=== PATIENT | female | born 1970 | race African-American/Black ===

== ENCOUNTER 2016-10-16 14:21 | Inpatient (IN) | payer OTHER ==
[2016-10-16 14:57] VITALS: BMI 36.7
--- NOTE | 2016-10-16 15:45 | HP ---
CIWA Score - CIWA Score Nausea/Vomitin-No Nausea/No Vomiting Muscle Tremors: 4-Moderate,w/Arms Extend Anxiety: 4-Mod. Anxious/Guarded Agitation: 4-Moderately Restless Paroxysmal Sweats: 3 Orientation: 0-Oriented Tacttile Disturbances: 0-None Auditory Disturbances: 0-None Visual Disturbances: 0-None Headache: 0-None Present CIWA-Ar Total Score: 15 Admission ROS BHS - HPI Chief Complaint: I need detox and get my life back. Allergies/Adverse Reactions: Allergies Allergy/AdvReac Type Severity Reaction Status Date / Time No Known Allergies Allergy Verified 10/16/16 15:31 History of Present Illness: pt is a 46yr old female with a history of alcohol and crack/cocaine dependence seeking detox for treatment. Exam Limitations: No Limitations - Ebola screening Have you traveled outside of the country in the last 21 days: No Have you had contact with anyone from an Ebola affected area: No Have you been sick,other than usual withdrawal symptoms: No Do you have a fever: No - Review of Systems Constitutional: Diaphoresis, Night Sweats EENT: reports: Nose Congestion Respiratory: reports: Cough Cardiac: reports: No Symptoms Reported GI: reports: Poor Fluid Intake : reports: No Symptoms Reported Musculoskeletal: reports: Back Pain (scoliosis and siatica) Integumentary: reports: Flushing, Sweating Neuro: reports: Tremors Endocrine: reports: Excessive Sweating, Flushing, Intolerance to Cold, Intolerance to Heat Hematology: reports: No Symptoms Reported Psychiatric: reports: Judgement Intact, Mood/Affect Appropiate, Orientated x3, Agitated, Anxious Other Systems: Reviewed and Negative Patient History - Patient Medical History Hx Anemia: No Hx Asthma: Yes Hx Chronic Obstructive Pulmonary Disease (COPD): No Hx Cancer: No Hx Cardiac Disorders: No Hx Congestive Heart Failure: No Hx Hypertension: Yes Hx Hypercholesterolemia: No Hx Pacemaker: No HX Cerebrovascular Accident: No Hx Seizures: No Hx Dementia: No Hx Diabetes: No Hx Gastrointestinal Disorders: No Hx Liver Disease: No Hx Genitourinary Disorders: No Hx Sexually Transmitted Disorders: Yes (syphyllis 1985 treated) Hx Renal Disease (ESRD): No Hx Thyroid Disease: No Hx Human Immunodeficiency Virus (HIV): No (negative) Hx Hepatitis C: No (negative) Hx Depression: Yes Hx Suicide Attempt: Yes (many years ago; denies S/H ideation today.) Hx Bipolar Disorder: Yes Hx Schizophrenia: No - Patient Surgical History Past Surgical History: No - PPD History Previous Implant?: Yes Documented Results: Negative w/o proof PPD to be Administered?: Yes - Reproductive History Patient is a Female of Child Bearing Age (11 -55 yrs old): Yes Last Menstrual Period: 10/16/16 - Smoking Cessation Smoking history: Current every day smoker Have you smoked in the past 12 months: Yes Aproximately how many cigarettes per day: 10 Hx Chewing Tobacco Use: No Initiated information on smoking cessation: Yes 'Breaking Loose' booklet given: 10/16/16 - Substance & Tx. History Hx Alcohol Use: Yes Hx Substance Use: Yes Substance Use Type: Alcohol, Cocaine Hx Substance Use Treatment: Yes - Substances Abused Alcohol-beer/rum Route: Oral Frequency: Daily Amount used: 2-3 6 pks./2 pts. Age of first use: 13 Date of Last Use: 10/15/16 Family Disease History - Family Disease History Family History: Denies Admission Physical Exam S - Vital Signs Vital Signs: Vital Signs - 24 hr 10/16/16 14:55 Temperature 98.4 F Pulse Rate 75 Respiratory 18 Rate Blood Pressure 141/84 - Physical General Appearance: Yes: Appropriately Dressed, Moderate Distress, Tremorous, Irritable, Sweating, Anxious HEENTM: Yes: Normal Voice, Nasal Congestion, Rhinorrhea Respiratory: Yes: Lungs Clear, Normal Breath Sounds, No Respiratory Distress Neck: Yes: No masses,lesions,Nodules Breast: Yes: Within Normal Limits Cardiology: Yes: Regular Rhythm, Regular Rate, S1, S2 Abdominal: Yes: Normal Bowel Sounds, Soft Genitourinary: Yes: Within Normal Limits Back: Yes: Normal Inspection Musculoskeletal: Yes: full range of Motion, Back pain Extremities: Yes: Normal Capillary Refill, Non-Tender, Tremors Neurological: Yes: Fully Oriented, Alert, Normal Response Integumentary: Yes: Normal Color Lymphatic: Yes: Within Normal Limits - Diagnostic (1) Alcohol dependence with uncomplicated withdrawal Current Visit: Yes Status: Chronic (2) Asthma Current Visit: Yes Status: Chronic Qualifiers: Asthma severity: mild intermittent Asthma complication type: uncomplicated Qualified Code(s): J45.20 - Mild intermittent asthma, uncomplicated (3) Crack cocaine use Current Visit: Yes Status: Chronic (4) Hypertension Current Visit: Yes Status: Chronic Qualifiers: Hypertension type: essential hypertension Qualified Code(s): I10 - Essential (primary) hypertension (5) Nicotine dependence Current Visit: Yes Status: Chronic Qualifiers: Nicotine product type: cigarettes Substance use status: uncomplicated Qualified Code(s): F17.210 - Nicotine dependence, cigarettes, uncomplicated (6) Scoliosis, congenital Current Visit: Yes Status: Chronic Cleared for Admission S - Detox or Rehab [facility] Level of Care: Medically Managed Detox Regimen/Protocol: Librium S Breath Alcohol Content Breath Alcohol Content: 0 Urine Pregancy Test - Result Urine Test Results: Negative- NO Line Present Urine Drug Screen - Results Drug Screen Negative: No Urine Drug Screen Results: THC-Marijuana, SALLY-Cocaine
[2016-10-16] MEDS ORDERED: guaiFENesin/D-METHORPHAN HB 10 ML UNIT-DOSE CUPS PO PRN (15:49)
[2016-10-16] MEDS ORDERED: P-EPHED 60MG/TRIPROLIDI 2.5MG TABLET PO PRN (15:49)
[2016-10-16] MEDS ORDERED: chlordiazePOXIDE HCL 25 MG CAPSULE PO PRN (15:49)
[2016-10-16] MEDS ORDERED: MAGNESIUM HYDROX 2400MG/30ML ORAL SUSPENSION 30 ML CUP PO PRN (15:49)
[2016-10-16] MEDS ORDERED: MENTHOL/PHENOL 1 EACH UD MM PRN (15:49)
[2016-10-16] MEDS ORDERED: ACETAMINOPHEN 325 MG TABLET (FP) PO PRN (15:49)
[2016-10-16] MEDS ORDERED: LOPERAMIDE HCL 2 MG CAPSULE PO PRN (15:49)
[2016-10-16] MEDS ORDERED: MAGNESIUM CITRATE 300 ML BOTTLE PO PRN (15:49)
[2016-10-16] MEDS ORDERED: NICOTINE POLACRILEX 4 MG GUM BUC PRN (15:49)
[2016-10-16] MEDS ORDERED: MAG HYDROX/AL HYDROX/SIMETH 30 ML UNIT-DOSE CUP PO PRN (15:49)
[2016-10-16] MEDS ORDERED: chlordiazePOXIDE HCL 25 MG CAPSULE PO ONE (17:30)
[2016-10-16] MEDS: chlordiazePOXIDE HCL 25 MG CAPSULE PO SCH ×2 (18:35→23:23)
[2016-10-16] MEDS ORDERED: ALBUTEROL SO4 6.7 GM HFA INHALER IH ONE (20:42)
[2016-10-16] MEDS: ALBUTEROL SO4 6.7 GM HFA INHALER IH PRN (20:43)
[2016-10-16] MEDS ORDERED: diphenhydrAMINE HCL 50 MG CAPSULE PO PRN (22:00)
[2016-10-16 23:00] LABS: URINE APPEARANCE SLCLOUDY; URINE BILIRUBIN NEGATIVE (NEGATIVE); URINE BLOOD 2+ (NEGATIVE); URINE COLOR YELLOW; URINE GLUCOSE (UA) NEGATIVE (NEGATIVE); URINE KETONE NEGATIVE (NEGATIVE); URINE LEUK ESTERASE 1+ (NEGATIVE); URINE NITRITE NEGATIVE (NEGATIVE); URINE PROTEIN 1+ (NEGATIVE); URINE UROBILINOGEN NEGATIVE E.U./dl (0.2-1.0)
[2016-10-16 23:03] LABS: URINE HYALINE CAST 12 /lpf; URINE MUCUS MODERATE; URINE RBC 37 /hpf (0-3); URINE WBC 44 /hpf (3-5)
[2016-10-16] MEDS: THIAMINE HCL 100 MG TABLET (FP) PO SCH (23:23)
[2016-10-17] MEDS: ALBUTEROL SO4 6.7 GM HFA INHALER IH PRN ×2 (00:49→06:07)
[2016-10-17] MEDS: chlordiazePOXIDE HCL 25 MG CAPSULE PO SCH ×4 (06:06→22:30)
[2016-10-17] MEDS ORDERED: ALBUTEROL SO4 0.042% IH SOL 1.25 MG/3 ML VIAL.NEB NEB PRN (06:58)
[2016-10-17 10:56] LABS: MCH 28.3 pg (25.7-33.7); MCHC 33.3 g/dl (32.0-36.0); MEAN CELL VOLUME 85.2 fl (80-96); MEAN PLT VOLUME 10.8 fl (7.5-11.1); PLATELET COUNT 180 K/MM3 (134-434); WHITE BLOOD COUNT 6.4 K/mm3 (4.0-10.0)
[2016-10-17 11:08] LABS: ALBUMIN 3.7 g/dl (3.4-5.0); ALK PHOS 139 U/L (45-117); ANION GAP 8 (8-16); BILIRUBIN,TOTAL 0.2 mg/dL (0.2-1.0); CALCIUM 9.2 mg/dL (8.5-10.1); CO2 24 mmol/L (21-32); CREATININE 0.7 mg/dL (0.55-1.02); GLUCOSE,RANDOM 98 mg/dL (74-106); SGOT/AST 10 U/L (15-37); SGPT/ALT 19 U/L (12-78); TOT PROT 7.5 g/dl (6.4-8.2)
[2016-10-17] MEDS: IBUPROFEN 600 MG TABLET (FP) PO PRN (11:08)
[2016-10-17] MEDS: LISINOPRIL 10 MG TABLET (FP) PO SCH (11:09)
[2016-10-17] MEDS: CYCLOBENZAPRINE HCL 10 MG TABLET (FP) PO PRN ×2 (11:09→22:30)
[2016-10-17] MEDS: PRENATAL VITAMINS W/ FOLIC ACID TABLET (FP) PO SCH (11:09)
[2016-10-17] MEDS: NICOTINE 21 MG/24 HOURS TOPICAL PATCH TD SCH (11:10)
[2016-10-17] MEDS: GABAPENTIN 300 MG CAPSULE (FP) PO SCH ×2 (14:15→22:30)
--- NOTE | 2016-10-17 14:15 | PN ---
S CIWA - CIWA Score Nausea/Vomitin Muscle Tremors: 3 Anxiety: 3 Agitation: 2 Paroxysmal Sweats: 1-Minimal Palms Moist Orientation: 0-Oriented Tacttile Disturbances: 1-Very Mild Itch/Numbness Auditory Disturbances: 1-Very Mild Visual Disturbances: 1-Very Mild Sensitivity Headache: 2-Mild CIWA-Ar Total Score: 17 BHS Progress Note (SOAP) Subjective: ALERT,IRRITABLE,ANXIOUS,INTERRUPTED SLEEP,TREMOR,INTERRUPTED SLEEP Objective: 10/17/16 14:12 Vital Signs Temperature 98.2 F 10/17/16 10:12 Pulse Rate 79 10/17/16 10:12 Respiratory Rate 18 10/17/16 10:12 Blood Pressure 103/67 10/17/16 10:12 O2 Sat by Pulse Oximetry (%) EKG NSR,NORMAL ECG Laboratory Last Values WBC 6.4 K/mm3 (4.0-10.0) 10/17/16 06:00 RBC 4.57 M/mm3 (3.60-5.2) 10/17/16 06:00 Hgb 12.9 GM/dL (10.7-15.3) 10/17/16 06:00 Hct 38.9 % (32.4-45.2) 10/17/16 06:00 MCV 85.2 fl (80-96) 10/17/16 06:00 MCHC 33.3 g/dl (32.0-36.0) 10/17/16 06:00 RDW 16.0 % (11.6-15.6) H 10/17/16 06:00 Plt Count 180 K/MM3 (134-434) 10/17/16 06:00 MPV 10.8 fl (7.5-11.1) 10/17/16 06:00 Sodium 143 mmol/L (136-145) 10/17/16 09:30 Potassium 4.3 mmol/L (3.5-5.1) 10/17/16 09:30 Chloride 111 mmol/L (98-107) H 10/17/16 09:30 Carbon Dioxide 24 mmol/L (21-32) 10/17/16 09:30 Anion Gap 8 (8-16) 10/17/16 09:30 BUN 19 mg/dL (7-18) H 10/17/16 09:30 Creatinine 0.7 mg/dL (0.55-1.02) 10/17/16 09:30 Creat Clearance w eGFR > 60 (>60) 10/17/16 09:30 Random Glucose 98 mg/dL (74-106) 10/17/16 09:30 Calcium 9.2 mg/dL (8.5-10.1) 10/17/16 09:30 Total Bilirubin 0.2 mg/dL (0.2-1.0) 10/17/16 09:30 AST 10 U/L (15-37) L 10/17/16 09:30 ALT 19 U/L (12-78) 10/17/16 09:30 Alkaline Phosphatase 139 U/L (45-117) H 10/17/16 09:30 Total Protein 7.5 g/dl (6.4-8.2) 10/17/16 09:30 Albumin 3.7 g/dl (3.4-5.0) 10/17/16 09:30 Urine Color Yellow 10/16/16 22:04 Urine Appearance Slcloudy 10/16/16 22:04 Urine pH 5.0 (5.0-8.0) 10/16/16 22:04 Ur Specific [place] 1.032 (1.001-1.035) 10/16/16 22:04 Urine Protein 1+ (NEGATIVE) H 10/16/16 22:04 Urine Glucose (UA) Negative (NEGATIVE) 10/16/16 22:04 Urine Ketones Negative (NEGATIVE) 10/16/16 22:04 Urine Blood 2+ (NEGATIVE) H 10/16/16 22:04 Urine Nitrite Negative (NEGATIVE) 10/16/16 22:04 Urine Bilirubin Negative (NEGATIVE) 10/16/16 22:04 Urine Urobilinogen Negative E.U./dl (0.2-1.0) 10/16/16 22:04 Ur Leukocyte Esterase 1+ (NEGATIVE) H 10/16/16 22:04 Urine RBC 37 /hpf (0-3) 10/16/16 22:04 Urine WBC 44 /hpf (3-5) 10/16/16 22:04 Ur Epithelial Cells Moderate /hpf (FEW) 10/16/16 22:04 Hyaline Casts 12 /lpf 10/16/16 22:04 Urine Mucus Moderate 10/16/16 22:04 LABS PENDING Assessment: 10/17/16 14:14 WITHDRAWAL SYMPTOM Plan: CONTINUE DETOX,REPEAT UA
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
--- NOTE | 2016-10-17 18:47 | EKG ---
Test Reason : Blood Pressure : / mmHG Vent. Rate : 075 BPM Atrial Rate : 075 BPM P-R Int : 142 ms QRS Dur : 076 ms QT Int : 410 ms P-R-T Axes : 031 006 020 degrees QTc Int : 457 ms NORMAL SINUS RHYTHM NORMAL ECG NO PREVIOUS ECGS AVAILABLE Confirmed by GIA POOLE MD ([id number]) on 10/17/2016 6:46:35 PM Referred By: Confirmed By:GIA POOLE MD
[2016-10-17] MEDS: hydrOXYzine PAMOATE 50 MG CAPSULE (FP) PO PRN (19:34)
[2016-10-17 20:30] LABS: URINE APPEARANCE SLCLOUDY; URINE BILIRUBIN NEGATIVE (NEGATIVE); URINE BLOOD NEGATIVE (NEGATIVE); URINE COLOR YELLOW; URINE GLUCOSE (UA) NEGATIVE (NEGATIVE); URINE KETONE NEGATIVE (NEGATIVE); URINE NITRITE NEGATIVE (NEGATIVE); URINE PROTEIN NEGATIVE (NEGATIVE); URINE UROBILINOGEN NEGATIVE E.U./dl (0.2-1.0)
[2016-10-17 20:37] LABS: URINE LEUK ESTERASE TRACE (NEGATIVE)
[2016-10-17 20:43] LABS: URINE HYALINE CAST 1 /lpf; URINE MUCUS RARE; URINE RBC 2 /hpf (0-3); URINE WBC 5 /hpf (3-5)
[2016-10-17] MEDS: SERTRALINE HCL 50 MG TABLET (FP) PO SCH (21:42)
[2016-10-17] MEDS: ZIPRASIDONE 20 MG CAPSULE PO SCH (21:42)
[2016-10-17] MEDS: ZOLPIDEM TARTRATE 5 MG TABLET PO PRN (22:30)
[2016-10-17] MEDS: THIAMINE HCL 100 MG TABLET (FP) PO SCH (22:30)
[2016-10-18] MEDS: IBUPROFEN 600 MG TABLET (FP) PO PRN (06:17)
[2016-10-18] MEDS: CYCLOBENZAPRINE HCL 10 MG TABLET (FP) PO PRN ×2 (06:17→23:07)
[2016-10-18] MEDS: chlordiazePOXIDE HCL 25 MG CAPSULE PO SCH ×2 (06:17→10:38)
[2016-10-18] MEDS: GABAPENTIN 300 MG CAPSULE (FP) PO SCH ×3 (06:17→23:07)
[2016-10-18 09:28] LABS: HIV 1 & 2 AB NEGATIVE; HIV 1 AGp24 NEGATIVE
[2016-10-18] MEDS: NICOTINE 21 MG/24 HOURS TOPICAL PATCH TD SCH (10:38)
[2016-10-18] MEDS: LISINOPRIL 10 MG TABLET (FP) PO SCH (10:38)
[2016-10-18] MEDS: SERTRALINE HCL 50 MG TABLET (FP) PO SCH (10:38)
[2016-10-18] MEDS: PRENATAL VITAMINS W/ FOLIC ACID TABLET (FP) PO SCH (10:38)
--- NOTE | 2016-10-18 12:50 | PN ---
[facility] CIWA - CIWA Score Nausea/Vomitin Muscle Tremors: 3 Anxiety: 3 Agitation: 2 Paroxysmal Sweats: 1-Minimal Palms Moist Orientation: 0-Oriented Tacttile Disturbances: 1-Very Mild Itch/Numbness Auditory Disturbances: 1-Very Mild Visual Disturbances: 1-Very Mild Sensitivity Headache: 2-Mild CIWA-Ar Total Score: 17 BHS Progress Note (SOAP) Subjective: ALERT,IRRITABLE,ANXIOUS,INTERRUPTED SLEEP,TREMOR Objective: 10/18/16 12:49 Vital Signs Temperature 99.3 F 10/18/16 11:05 Pulse Rate 66 10/18/16 11:05 Respiratory Rate 18 10/18/16 11:05 Blood Pressure 112/83 10/18/16 11:05 O2 Sat by Pulse Oximetry (%) Laboratory Last Values WBC 6.4 K/mm3 (4.0-10.0) 10/17/16 06:00 RBC 4.57 M/mm3 (3.60-5.2) 10/17/16 06:00 Hgb 12.9 GM/dL (10.7-15.3) 10/17/16 06:00 Hct 38.9 % (32.4-45.2) 10/17/16 06:00 MCV 85.2 fl (80-96) 10/17/16 06:00 MCHC 33.3 g/dl (32.0-36.0) 10/17/16 06:00 RDW 16.0 % (11.6-15.6) H 10/17/16 06:00 Plt Count 180 K/MM3 (134-434) 10/17/16 06:00 MPV 10.8 fl (7.5-11.1) 10/17/16 06:00 Sodium 143 mmol/L (136-145) 10/17/16 09:30 Potassium 4.3 mmol/L (3.5-5.1) 10/17/16 09:30 Chloride 111 mmol/L (98-107) H 10/17/16 09:30 Carbon Dioxide 24 mmol/L (21-32) 10/17/16 09:30 Anion Gap 8 (8-16) 10/17/16 09:30 BUN 19 mg/dL (7-18) H 10/17/16 09:30 Creatinine 0.7 mg/dL (0.55-1.02) 10/17/16 09:30 Creat Clearance w eGFR > 60 (>60) 10/17/16 09:30 Random Glucose 98 mg/dL (74-106) 10/17/16 09:30 Calcium 9.2 mg/dL (8.5-10.1) 10/17/16 09:30 Total Bilirubin 0.2 mg/dL (0.2-1.0) 10/17/16 09:30 AST 10 U/L (15-37) L 10/17/16 09:30 ALT 19 U/L (12-78) 10/17/16 09:30 Alkaline Phosphatase 139 U/L (45-117) H 10/17/16 09:30 Total Protein 7.5 g/dl (6.4-8.2) 10/17/16 09:30 Albumin 3.7 g/dl (3.4-5.0) 10/17/16 09:30 Urine Color Yellow 10/17/16 19:00 Urine Appearance Slcloudy 10/17/16 19:00 Urine pH 6.0 (5.0-8.0) 10/17/16 19:00 Ur Specific [place] 1.032 (1.001-1.035) 10/17/16 19:00 Urine Protein Negative (NEGATIVE) 10/17/16 19:00 Urine Glucose (UA) Negative (NEGATIVE) 10/17/16 19:00 Urine Ketones Negative (NEGATIVE) 10/17/16 19:00 Urine Blood Negative (NEGATIVE) 10/17/16 19:00 Urine Nitrite Negative (NEGATIVE) 10/17/16 19:00 Urine Bilirubin Negative (NEGATIVE) 10/17/16 19:00 Urine Urobilinogen Negative E.U./dl (0.2-1.0) 10/17/16 19:00 Ur Leukocyte Esterase Trace (NEGATIVE) H D 10/17/16 19:00 Urine RBC 2 /hpf (0-3) 10/17/16 19:00 Urine WBC 5 /hpf (3-5) 10/17/16 19:00 Ur Epithelial Cells Rare /hpf (FEW) 10/17/16 19:00 Hyaline Casts 1 /lpf 10/17/16 19:00 Urine Mucus Rare 10/17/16 19:00 RPR Titer Nonreactive (NONREACTIVE) 10/17/16 06:00 HIV 1&2 Antibody Screen Negative 10/18/16 06:00 HIV P24 Antigen Negative 10/18/16 06:00 10/18/16 12:49 Assessment: 10/18/16 12:49 WITHDRAWAL SYMPTOM Plan: CONTINUE DETOX
[2016-10-18] MEDS: ZIPRASIDONE 20 MG CAPSULE PO SCH (14:00)
[2016-10-18] MEDS: chlordiazePOXIDE 5 MG CAPSULE PO SCH ×2 (20:37→23:07)
[2016-10-18] MEDS: ZOLPIDEM TARTRATE 5 MG TABLET PO PRN (23:07)
[2016-10-18] MEDS: THIAMINE HCL 100 MG TABLET (FP) PO SCH (23:08)
[2016-10-19] MEDS: GABAPENTIN 300 MG CAPSULE (FP) PO SCH ×3 (05:52→23:02)
[2016-10-19] MEDS: chlordiazePOXIDE 5 MG CAPSULE PO SCH ×2 (05:52→10:23)
[2016-10-19] MEDS: CYCLOBENZAPRINE HCL 10 MG TABLET (FP) PO PRN (05:56)
[2016-10-19] MEDS: IBUPROFEN 600 MG TABLET (FP) PO PRN (05:56)
[2016-10-19] MEDS: PRENATAL VITAMINS W/ FOLIC ACID TABLET (FP) PO SCH (10:22)
[2016-10-19] MEDS: LISINOPRIL 10 MG TABLET (FP) PO SCH (10:22)
[2016-10-19] MEDS: SERTRALINE HCL 50 MG TABLET (FP) PO SCH (10:22)
[2016-10-19] MEDS: NICOTINE 21 MG/24 HOURS TOPICAL PATCH TD SCH (10:22)
[2016-10-19] MEDS: ZIPRASIDONE 20 MG CAPSULE PO SCH (10:23)
--- NOTE | 2016-10-19 10:56 | PN ---
BHS Progress Note (SOAP) Subjective: vaginal discharge with fishy odor sweats agitation Objective: 10/19/16 10:56 Vital Signs Temperature 98.1 F 10/19/16 10:20 Pulse Rate 109 H 10/19/16 10:20 Respiratory Rate 20 10/19/16 10:20 Blood Pressure 133/87 10/19/16 10:20 O2 Sat by Pulse Oximetry (%) Laboratory Tests 10/16/16 10/17/16 10/17/16 22:04 06:00 06:00 WBC 6.4 RBC 4.57 Hgb 12.9 Hct 38.9 MCV 85.2 MCHC 33.3 RDW 16.0 H Plt Count 180 MPV 10.8 Sodium Potassium Chloride Carbon Dioxide Anion Gap BUN Creatinine Creat Clearance w eGFR Random Glucose Calcium Total Bilirubin AST ALT Alkaline Phosphatase Total Protein Albumin Urine Color Yellow Urine Appearance Slcloudy Urine pH 5.0 Ur Specific [place] 1.032 Urine Protein 1+ H Urine Glucose (UA) Negative Urine Ketones Negative Urine Blood 2+ H Urine Nitrite Negative Urine Bilirubin Negative Urine Urobilinogen Negative Ur Leukocyte Esterase 1+ H Urine RBC 37 Urine WBC 44 Ur Epithelial Cells Moderate Hyaline Casts 12 Urine Mucus Moderate RPR Titer Nonreactive HIV 1&2 Antibody Screen HIV P24 Antigen 10/17/16 10/17/16 10/18/16 09:30 19:00 06:00 WBC RBC Hgb Hct MCV MCHC RDW Plt Count MPV Sodium 143 Potassium 4.3 Chloride 111 H Carbon Dioxide 24 Anion Gap 8 BUN 19 H Creatinine 0.7 Creat Clearance w eGFR > 60 Random Glucose 98 Calcium 9.2 Total Bilirubin 0.2 AST 10 L ALT 19 Alkaline Phosphatase 139 H Total Protein 7.5 Albumin 3.7 Urine Color Yellow Urine Appearance Slcloudy Urine pH 6.0 Ur Specific [place] 1.032 Urine Protein Negative Urine Glucose (UA) Negative Urine Ketones Negative Urine Blood Negative Urine Nitrite Negative Urine Bilirubin Negative Urine Urobilinogen Negative Ur Leukocyte Esterase Trace H D Urine RBC 2 Urine WBC 5 Ur Epithelial Cells Rare Hyaline Casts 1 Urine Mucus Rare RPR Titer HIV 1&2 Antibody Screen Negative HIV P24 Antigen Negative awake/alert ambulating no acute distress Assessment: 10/19/16 10:56 withdrawal sx Plan: continue detox increase fluids flagly 500mg tid d/c in am
[2016-10-19] MEDS: metroNIDAZOLE 250 MG TABLET PO SCH ×2 (14:27→23:02)
[2016-10-19] MEDS: chlordiazePOXIDE HCL 10 MG CAPSULE PO SCH ×2 (17:26→23:02)
[2016-10-19] MEDS: hydrOXYzine PAMOATE 50 MG CAPSULE (FP) PO PRN (17:28)
[2016-10-19] MEDS: THIAMINE HCL 100 MG TABLET (FP) PO SCH (23:02)
[2016-10-20] MEDS: chlordiazePOXIDE HCL 10 MG CAPSULE PO SCH (05:49)
[2016-10-20] MEDS: GABAPENTIN 300 MG CAPSULE (FP) PO SCH (05:50)
[2016-10-20] MEDS: metroNIDAZOLE 250 MG TABLET PO SCH (05:50)
[2016-10-20] MEDS: IBUPROFEN 600 MG TABLET (FP) PO PRN (06:18)
[2016-10-20] MEDS: CYCLOBENZAPRINE HCL 10 MG TABLET (FP) PO PRN (06:18)
[2016-10-20 07:00] VITALS: BP 122/85; PULSE 115; TEMP 97.5
--- NOTE | 2016-10-20 08:56 | DS ---
[facility] Detox Discharge Summary Admission Date: 10/16/16 Discharge Date: 10/20/16 - History Present History: Alcohol Dependence, Cannabis Dependence, Cocaine Dependence - Physical Exam Results Vital Signs: Vital Signs Temperature 97.5 F L 10/20/16 06:59 Pulse Rate 115 H 10/20/16 06:59 Respiratory Rate 20 10/20/16 06:59 Blood Pressure 122/85 10/20/16 06:59 O2 Sat by Pulse Oximetry (%) - Treatment Hospital Course: Detox Protocol Followed, Detoxed Safely, Responded well, Discharged Condition Good, Rehab Referral Accepted - Medication Discharge Medications: Ambulatory Orders Albuterol Sulfate Inhaler - [Ventolin Hfa Inhaler -] 2 inh PO Q4H PRN 10/16/16 Cyclobenzaprine HCl [Flexeril -] 10 mg PO TID 10/16/16 Ibuprofen [Motrin -] 600 mg PO TID PRN 10/16/16 Lisinopril [Prinivil] 10 mg PO DAILY 10/16/16 Sertraline HCl [Zoloft -] 50 mg PO DAILY 10/16/16 Ziprasidone [Geodon] 20 mg PO DAILY 10/16/16 Zolpidem Tartrate [Ambien] 10 mg PO HS 10/16/16 Sertraline HCl [Zoloft -] 50 mg PO DAILY #30 tablet 10/17/16 Ziprasidone [Geodon] 20 mg NR DAILY #30 capsule 10/17/16 - Diagnosis (1) Alcohol dependence with uncomplicated withdrawal Current Visit: Yes Status: Chronic (2) Asthma Current Visit: Yes Status: Chronic Qualifiers: Asthma severity: mild intermittent Asthma complication type: uncomplicated Qualified Code(s): J45.20 - Mild intermittent asthma, uncomplicated (3) Crack cocaine use Current Visit: Yes Status: Chronic (4) Hypertension Current Visit: Yes Status: Chronic Qualifiers: Hypertension type: essential hypertension Qualified Code(s): I10 - Essential (primary) hypertension (5) Nicotine dependence Current Visit: Yes Status: Chronic Qualifiers: Nicotine product type: cigarettes Substance use status: uncomplicated Qualified Code(s): F17.210 - Nicotine dependence, cigarettes, uncomplicated (6) Scoliosis, congenital Current Visit: Yes Status: Chronic - AMA Did Patient Leave Against Medical Advice: No
[2016-10-20] MEDS: LISINOPRIL 10 MG TABLET (FP) PO SCH (09:32)
[2016-10-20] MEDS: SERTRALINE HCL 50 MG TABLET (FP) PO SCH (09:32)
[2016-10-20] MEDS: PRENATAL VITAMINS W/ FOLIC ACID TABLET (FP) PO SCH (09:32)
[2016-10-20] MEDS: ZIPRASIDONE 20 MG CAPSULE PO SCH (09:33)
[2016-10-20] MEDS: NICOTINE 21 MG/24 HOURS TOPICAL PATCH TD SCH (09:34)
--- NOTE | 2016-10-21 12:21 | PN ---
[facility] Progress Note Note: PATIENT CALLED,STATED DID NOT GET PRESCRIPTION LISINOPRIL 10 MGS PO DAILY FOR 30 DAYS NEURONTIN 300 MGS TID #20 E PRESCRIPTION TO CHOICE [facility] ADVISE TO CALL HER PMD FOR MEDICAL PROBLEM AND FOR MORE PRESCRIPTION
== END 2016-10-20 09:51 | disposition home or self-care (01) | DRG 774 ==
LOC: YASAS 14:21 → Y6N 16:10
PROVIDERS: ADMIT Internal Medicine; ATTEND Internal Medicine
PROC: HZ2ZZZZ Detoxification Services for Substance Abuse Treatment (ICD-10-PCS; principal; 2016-10-20)
DX: F10.230 Alcohol dependence with withdrawal, uncomplicated (principal); F14.20 Cocaine dependence, uncomplicated; F17.210 Nicotine dependence, cigarettes, uncomplicated; F12.20 Cannabis dependence, uncomplicated; F19.24 Other psychoactive substance dependence with psychoactive substance-induced mood disorder; F43.10 Post-traumatic stress disorder, unspecified; I10 Essential (primary) hypertension; J45.20 Mild intermittent asthma, uncomplicated; M41.9 Scoliosis, unspecified
CPT/HCPCS: 36415; 80053; 81003; 81015; 85027; 86593; 87389; 93005; 93010; 94640